=== PATIENT | female | born 1960 | race Hispanic/Latino ===

== ENCOUNTER 2017-12-13 09:46 | Outpatient (CLI) | payer BC ==
--- NOTE | 2017-12-13 10:25 | Mammography Report ---
BILATERAL MAMMOGRAM: FINDINGS: The breast tissue is extremely dense (>75% glandular). This may lower the sensitivity of mammography. No mass, distortion, suspicious calcification, or skin change is seen. No significant change identified when compared to prior examination in April 2015. CAD was utilized. IMPRESSION: Negative mammogram. There is no mammographic evidence of malignancy. RECOMMENDATION: Follow-up per ACS guidelines. BI-RADS CATEGORY: 1 = Negative ACR BI-RADS MAMMOGRAPHIC CODES: 0 = Needs additional imaging evaluation; 1 = Negative; 2 = Benign; 3 = Probably benign; 4 = Suspicious; 5 = Malignant; 6 = Known biopsy-proven malignancy COMMENT: 1. Dense breast tissue, i.e., adenosis, fibrocystic changes, etc., may obscure an underlying neoplasm. 2. Approximately 10% of cancers are not detected with mammography. 3. A negative mammography report should not delay biopsy if a clinically suspicious mass is present. COMMENT: Patient follow-up letters are generated in [employer].
== END 2017-12-13 09:47 | disposition home or self-care (01) ==
LOC: MAMMO 09:46
PROVIDERS: ATTEND Obstetrics & Gynecology
DX: Z12.31 Encounter for screening mammogram for malignant neoplasm of breast (principal)
CPT/HCPCS: 77067

== ENCOUNTER 2018-06-12 11:18 | Outpatient (CLI) | payer BC ==
--- NOTE | 2018-06-12 13:09 | Ultrasound Report ---
RIGHT DIGITAL DIAGNOSTIC MAMMOGRAM with CAD: 06/12/18 11:18:00 CLINICAL: Right breast pain. COMPARISON:12/13/17 screening mammogram FINDINGS: The breasts is heterogeneously dense and the breast density is sufficient to limit the sensitivity of mammography.No mass, architectural distortion or suspicious calcifications. A few benign calcifications. Ultrasound of the right breast (including all four quadrants and the retroareolar area) was performed and demonstrated several benign cysts and no solid mass or shadowing. An oval anechoic cyst at 9 o'clock next to the nipple measures 5 x 4 x 8 mm. A cyst at 9 o'clock 4 cm from the nipple measures 1.2 x 1.3 x 0.7 cm. A retroareolar cyst measures 0.8 x 0.9 and 0.4 cm. IMPRESSION: Benign cysts and benign calcifications.No suspicious finding and no explanation for pain. BI-RADS CATEGORY: 2 - - Benign RECOMMENDATION: Clinical followup and routine mammographic screening. ACR BI-RADS MAMMOGRAPHIC CODES: 0 = Needs additional imaging evaluation; 1 = Negative; 2 = Benign; 3 = Probably benign; 4 = Suspicious; 5 = Malignant; 6 = Known biopsy-proven malignancy COMMENT: 1. Dense breast tissue, i.e., adenosis, fibrocystic changes, etc., may obscure an underlying neoplasm. 2. Approximately 10% of cancers are not detected with mammography. 3. A negative mammography report should not delay biopsy if a clinically suspicious mass is present. COMMENT: Patient follow-up letters are generated by our [employer] application.
== END 2018-06-12 11:19 | disposition home or self-care (01) ==
LOC: MAMMO 11:18
PROVIDERS: ATTEND Obstetrics & Gynecology
DX: N60.01 Solitary cyst of right breast (principal)

== ENCOUNTER 2020-04-05 07:06 | Outpatient (CLI) | payer BC ==
--- NOTE | 2020-04-05 08:59 | Mammography Report ---
DIGITAL SCREENING MAMMOGRAM WITH CAD, 04/05/2020 INDICATION: Routine screening mammography. TECHNIQUE: Digital bilateral 2D mammography was obtained in the craniocaudal and mediolateral obliq ue projections. This examination was interpreted with the benefit of Computer-Aided Detection analysi s. COMPARISON: 04/20/2015. FINDINGS: Breast Density: The breasts are extremely dense, which lowers the sensitivity of mammography. There is no evidence of dominant mass, suspicious calcifications or architectural distortion in eithe r breast. Both breasts contain scattered calcification. IMPRESSION: Follow up recommendation: Routine yearly BI-RADS Category 1: Negative. A "normal" or negative report should not discourage follow up or biopsy of a clinically significant f inding. A written summary Of these findings will be mailed to the patient. The patient will be entered into a mammography reporting system which will generate a reminder letter for the patient's next appointmen t at the appropriate interval. The [employer] recommends yearly mammograms starting at age 40 and continuing as l jackson as a woman is in good health. Breast MRI is recommended for women with an approximate 20-25% or greater lifetime risk of breast cancer, including women with a strong family history of breast or ova dagoberto cancer or who have been treated for Hodgkin's disease. Signer Name: Conor Concepcion MD Signed: 04/05/2020 8:55 AM Workstation Name: [id number]
== END 2020-04-05 07:07 | disposition home or self-care (01) ==
LOC: MAMMO 07:06
PROVIDERS: ATTEND Obstetrics & Gynecology
DX: Z12.31 Encounter for screening mammogram for malignant neoplasm of breast (principal)
CPT/HCPCS: 77067

== ENCOUNTER 2021-06-02 10:05 | Outpatient (CLI) | payer BC ==
--- NOTE | 2021-06-02 17:29 | Mammography Report ---
DIGITAL SCREENING MAMMOGRAM WITH CAD, 06/02/2021 CLINICAL INFORMATION / INDICATION: Routine screening mammography. SCREENING MAMMOGRAM TECHNIQUE: Digital bilateral 2D mammography was obtained in the craniocaudal and mediolateral obliqu e projections. This examination was interpreted with the benefit of Computer-Aided Detection analysis . COMPARISON: 04/05/2020, 12/13/2017 FINDINGS: Breast Density: The breasts are extremely dense, which lowers the sensitivity of mammography. No dominant mass, suspicious calcifications, or architectural distortion in either breast. Stable scattered calcifications bilaterally. IMPRESSION: No mammographic evidence of malignancy. Follow up recommendation: Routine yearly BI-RADS Category 2: BENIGN. A "normal" or negative report should not discourage follow up or biopsy of a clinically significant f inding. A written summary of these findings will be mailed to the patient. The patient will be entered into a mammography reporting system which will generate a reminder letter for the patient's next appointmen t at the appropriate interval. The [employer] recommends yearly mammograms starting at age 40 and continuing as l jackson as a woman is in good health. Breast MRI is recommended for women with an approximate 20-25% or greater lifetime risk of breast cancer, including women with a strong family history of breast or ova dagoberto cancer or who have been treated for Hodgkin's disease. Signer Name: Jaylen Veronica MD Signed: 06/02/2021 5:24 PM Workstation Name: [id number]
== END 2021-06-02 10:06 | disposition home or self-care (01) ==
LOC: MAMMO 10:05
PROVIDERS: ATTEND Obstetrics & Gynecology
DX: Z12.31 Encounter for screening mammogram for malignant neoplasm of breast (principal)
CPT/HCPCS: 77067